=== PATIENT | female | born 1995 | race Caucasian/White ===

== ENCOUNTER → 2018-03-15 | Outpatient (CLI) | payer SELFPAY ==
--- NOTE | 2018-03-15 14:13 | RADIOLOGY REPORT (SQ) ---
EXAM DESCRIPTION: U/S OB 14+ TRNABD 1GES W/O DOP COMPLETED DATE/TIME: 03/15/2018 1:56 pm REASON FOR STUDY: ENCOUNTER FOR SUPERVISON OF OTHER NORMAL ,SECOND TRIMESTER Z34.[address] FOR SUPRVSN OF NORMAL , SECOND TRI COMPARISON: None. TECHNIQUE: Static and Dynamic grayscale imaging performed of gravid uterus using transabdominal appr oach. Additional selected color Doppler and spectral images recorded. All stored on PACS. LIMITATIONS: None. FINDINGS: FETUSES SEEN:1 EGA: 25 weeks Calculated using BPD,FL,HC,AC documented on images. No discrepancy with clinical dates . JUAN: 06/28/2018 EFW: 741+/- 110 grams PERCENTILE: 44th LVP: 4.2 cm PLACENTA: Anterior GRADE: I PRESENTATION: Cephalic. ANATOMY: HEART RATE: 140 beats per minute. FOUR CHAMBER HEART: Visualized. THREE VESSEL CORD: Yes. CORD INSERTION: Visualized. KIDNEYS AND BLADDER: Visualized. Appear normal. STOMACH: Visualized. Appears normal. SPINE: Normal as visualized. BRAIN AND LATERAL VENTRICLES: Lateral ventricles are normal. OTHER: Cerebellum and cisterna magna not seen because of positioning. MATERNAL ADNEXA: Maternal ovaries not visualized. CERVICAL LENGTH: 3.6 cm. Closed. OTHER: No other significant finding. IMPRESSION: LIVING INTRAUTERINE . ESTIMATED GESTATIONAL AGE 25 weeks. NO VISUALIZED ANOMALIES. Trimester of : Second trimester - 13 weeks 1 day to 27 weeks 6 days. TECHNICAL DOCUMENTATION: JOB ID: [id number] [employer]- All Rights Reserved Reading location - IP/workstation name: [email or web address]
== END ==
LOC: RAD 12:38
PROVIDERS: ATTEND Nurse Practitioner
DX: Z34.82 Encounter for supervision of other normal pregnancy, second trimester (principal)
CPT/HCPCS: 76805

== ENCOUNTER 2018-06-17 19:51 | Outpatient (CLI) | payer MEDICAID ==
[2018-06-17 20:47] LABS: APPEARANCE,URINE CLOUDY; BILIRUBIN,URINE NEGATIVE (NEGATIVE); COLOR,URINE YELLOW; GLUCOSE, URINE NEGATIVE (NEGATIVE); KETONES,URINE NEGATIVE (NEGATIVE); LEUKOCYTE ESTERASE,URINE TRACE (NEGATIVE); NITRITE,URINE NEGATIVE (NEGATIVE); PROTEIN,URINE NEGATIVE (NEGATIVE); URINE SPECIFIC GRAVITY 1.012; UROBILINOGEN,URINE NEGATIVE mg/dL (<2.0)
[2018-06-17 21:03] LABS: URINE AMPHETAMINES SCREEN NEGATIVE; URINE BARBITURATES SCREEN NEGATIVE; URINE BENZODIAZEPINES SCREEN NEGATIVE; URINE COCAINE SCREEN NEGATIVE; URINE MARIJUANA (THC) SCREEN NEGATIVE; URINE METHADONE SCREEN NEGATIVE; URINE PHENCYCLIDINE SCREEN NEGATIVE
== END 2018-06-17 21:11 | disposition home or self-care (01) ==
LOC: LC 19:51
PROVIDERS: ATTEND Obstetrics & Gynecology
PROC: 4A1HXCZ Monitoring of Products of Conception, Cardiac Rate, External Approach (ICD-10-PCS; principal; 2018-06-17)
DX: Z34.93 Encounter for supervision of normal pregnancy, unspecified, third trimester (principal)
CPT/HCPCS: 80307; 81005

== ENCOUNTER 2018-07-08 06:17 | Inpatient (IN) | payer MEDICAID ==
[2018-07-08] MEDS ORDERED: RINGERS SOLUTION,LACTATED 300 ML IV ONE (06:19)
[2018-07-08] MEDS ORDERED: PENICILLIN G POTASSIUM 5,000,000 UNIT in DEXTROSE 5%-WATER 100 ML IV ONE (06:19)
[2018-07-08] MEDS ORDERED: OXYTOCIN/NORMAL SALINE 20 UNIT/1,000 ML RTUINJ IV PRN ×2 (06:19→15:12)
[2018-07-08] MEDS ORDERED: MISOPROSTOL 0.2 MG TABLET ONE (06:50)
[2018-07-08] MEDS ORDERED: LIDOCAINE 1% INJ-PF (10 MG/ML) 30 ML SDV ONE (06:50)
[2018-07-08] MEDS ORDERED: OXYTOCIN/NORMAL SALINE 20 UNIT/1,000 ML RTUINJ ONE (06:50)
[2018-07-08] MEDS ORDERED: OXYTOCIN 10 UNIT/ML VIAL ONE (06:50)
[2018-07-08] MEDS ORDERED: PENICILLIN G-K 5 MILLION UNIT VIAL ONE ×2 (07:15→11:11)
[2018-07-08] MEDS: RINGERS SOLUTION,LACTATED 1,000 ML IV PRN ×2 (07:29→12:26)
[2018-07-08 08:04] LABS: ABSOLUTE EOSINOPHILS # (AUTO) 0.1 10^3/uL (0.0-0.6); ABSOLUTE LYMPHOCYTES (AUTO) 2.5 10^3/uL (0.5-4.7); ABSOLUTE MONOCYTES (AUTO) 1.2 10^3/uL (0.1-1.4); ABSOLUTE NEUT (AUTO) 9.8 10^3/uL (1.7-8.2); BASOPHILS % (AUTO) 0.3 % (0-2); EOSINOPHILS % (AUTO) 0.9 % (0-6); HEMATOCRIT 33.1 % (36.0-47.0); HEMOGLOBIN 10.8 g/dL (12.0-15.5); LYMPHOCYTES % (AUTO) 18.7 % (13-45); MEAN CORPUSCULAR HEMOGLOBIN 24.6 pg (27.0-33.4); MEAN CORPUSCULAR HGB CONC 32.6 g/dL (32.0-36.0); MEAN CORPUSCULAR VOLUME 75 fl (80-97); MONOCYTES % (AUTO) 8.4 % (3-13); PLATELET COUNT 315 10^3/uL (150-450); RED BLOOD COUNT 4.39 10^6/uL (3.72-5.28); RED CELL DISTRIBUTION WIDTH 16.9 % (11.5-14.0); SEGMENTED NEUTROPHILS % (AUTO) 71.7 % (42-78); TOTAL CELLS COUNTED % (AUTO) 100 %; WHITE BLOOD COUNT 13.6 10^3/uL (4.0-10.5)
[2018-07-08 08:12] LABS: APPEARANCE,URINE TURBID; BILIRUBIN,URINE NEGATIVE (NEGATIVE); COLOR,URINE YELLOW; GLUCOSE, URINE NEGATIVE (NEGATIVE); KETONES,URINE NEGATIVE (NEGATIVE); LEUKOCYTE ESTERASE,URINE LARGE (NEGATIVE); NITRITE,URINE NEGATIVE (NEGATIVE); PROTEIN,URINE NEGATIVE (NEGATIVE); URINE SPECIFIC GRAVITY 1.013; UROBILINOGEN,URINE NEGATIVE mg/dL (<2.0)
[2018-07-08 08:28] LABS: URINE AMPHETAMINES SCREEN NEGATIVE; URINE BARBITURATES SCREEN NEGATIVE; URINE BENZODIAZEPINES SCREEN NEGATIVE; URINE COCAINE SCREEN NEGATIVE; URINE MARIJUANA (THC) SCREEN NEGATIVE; URINE METHADONE SCREEN NEGATIVE; URINE PHENCYCLIDINE SCREEN NEGATIVE
[2018-07-08] MEDS ORDERED: PENICILLIN G-K 5 MILLION UNIT VIAL IV SCH (10:00)
--- NOTE | 2018-07-08 10:08 | Admission Physical ---
Datetime Report Generated by CPN: 07/08/2018 10:08 CURRENT ADMISSION Hx Assessment: The History has been Reviewed and is Current Chief Complaint: Uterine Contractions Indication for Induction: Post Dates Admit Impression : Postterm, Intrauterine ; No Active Labor; Intact Membranes; Induction of Labor Admit Plan: Admit to Unit ALLERGIES Medication Allergies: Yes Medication Allergies: butorphanol (07/08/2018) Latex: No Latex Allergies OBSTETRICAL HISTORY EDC: 06/29/2018 00:00 : 5 Para: 4 Term: 4 : 0 SAB: 0 IAB: 0 Ectopic: 0 Livin Cesareans: 0 VBACs: 0 Multiple Births: 0 Gestational Diabetes: No Rh Sensitization: No Incompetent Cervix: No ADRYAN: No Infertility: No ART Treatment: No Uterine Anomaly: No IUGR: No Hx Previous C/S: No Macrosomia: No Hx Loss/Stillborn: No PIH: No Hx : No Placenta Previa/Abruption: No Depression/PP Depression: Yes PTL/PROM: No Post Hemorrhage: Yes Current Procedures: Ultrasound; NST Obstetrical History Comments: @ 38wks male 8lbs 8oz G2 @ 39wks male 8lbs 8oz (pt states she "almost had to have a blood transfusion") @ 40wks male 7lbs 8oz @ 39wks male 8lbs 2oz G5-Current SEE RECORDS Alcohol: No Marijuana : No Cocaine: No Other Illicit Drugs: No Cigarettes: Current Everyday Smoker. 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 Heart Disease: No Hosp/Surgery: Yes Autoimmune Disorder: No Anesthetic Complications: No Kidney Disease: No Abnormal Pap Smear: No Neuro/Epilepsy: No Psychiatric Disorders: Yes Other Medical Diseases: No Hepatitis/Liver Disease: No Significant Family History: No Varicosities/Phlebitis: Yes Trauma/Violence : No Thyroid Dysfunction: No Medical History Comments: PE from Depo in 2017 currently on lovenox; Borderline personality disorder and schizophrenia-no meds; childbirth x 4; PPH INFECTIOUS HISTORY Gonorrhea: Yes Genital Herpes: No Chlamydia: Yes Tuberculosis: No Syphilis: No Hepatitis: No HIV/AIDS Exposure: No Rash or Viral Illness: No HPV: No PHYSICAL EXAM General: Normal HEENT: Deferred Neurologic: Normal Thyroid: Normal Heart: Normal Lungs: Normal Breast: Deferred Back: Normal Abdomen: Normal Genitourinary Exam: Normal Extremities: Normal DTRs: Normal Pelvic Type: Adequate Physical Exam Comments: Pelvis proven 8-8 On Lovenox, Hx PE on Depo Hx borderline personality disorder/Schizophrenia Obese Hx PPH + GBS Vital Signs: Reviewed FETUS A EGA: 41.2 Decelerations: None Presentation: Vertex Admit Comment: Admitted to LD for IOL for post dates, + GBS, 3, Cat 1, receiving meds for GBS, irreg uc's, will AROM after 4 hours of antibiotic PLANS FOR LABOR AND DELIVERY Labor and Delivery: None Pain Management: None Feeding Preference: Breast Benefit of Breast Feed Discussed: Yes Circumcision: No INFORMED CONSENT Assignment: Florian Brennan MD Signature: with User ID: Teresa : with User ID: Teresa
[2018-07-08] MEDS ORDERED: PENICILLIN G POTASSIUM 2,500,000 UNIT in DEXTROSE 5%-WATER 50 ML IV SCH (10:20)
--- NOTE | 2018-07-08 11:52 | L&D Progress Notes ---
PROGRESS NOTES Datetime Report Generated by CPN: 07/08/2018 11:52 PROGRESS NOTE Procedures: Artificial ROM; Sterile Vag Exam Plan: Continue Present Management; Induction Informed Consent Obtained: Induction of Labor Vital Signs : Reviewed; Within Normal Limits Comment: VE= 5/80/vtx/-1-2, arom, mod mec, irreg uc's, uc's stronger per pt. will monitor closely, anticipate VAGINAL EXAM Dilatation: 5 Effacement: 80 Station: -1 LAST VAGINAL EXAM-NURSING Dilitation: 5.0 Dilitation: 5.0 Dilitation: 2.0 Effacement: 80 Effacement: 70 Effacement: 20 Station: -2 Station: -3 Station: -2 Contractions: applied MEMBRANES Membranes: Ruptured Amniotic Fluid Color: Meconium, Light FETUS A Monitoring: External US FHR Category: Category I : 41.2 Presentation: Vertex SIGNATURE SIGNATURE: [id number] SIGNATURE: [id number] Assignment: Florian Brennan MD Signature: with User ID: Teresa : with User ID: Teresa
[2018-07-08] MEDS ORDERED: FENTANYL CITRATE INJ/PF 100 MCG/2 ML AMPUL IV ONE (12:39)
[2018-07-08] MEDS ORDERED: FENTANYL CITRATE INJ/PF 100 MCG/2 ML AMPUL ONE (12:41)
--- NOTE | 2018-07-08 13:30 | L&D Progress Notes ---
PROGRESS NOTES Datetime Report Generated by CPN: 07/08/2018 13:30 PROGRESS NOTE Comment: VE 6-7/80/vtx/-1, minimal relief from Fentanyl, breathing with uc's, family at BS VAGINAL EXAM Dilitation: 7.0 Effacement: 80 Station: 0 FETUS A Monitoring: External US FETUS C SIGNATURE: [id number];[id number] Assignment: Florian Brennan MD Signature: with User ID: Teresa : with User ID: Teresa
[2018-07-08] MEDS ORDERED: DIPH/PERTUSS(ACELL)/TETANUS VAC/PF 0.5 ML SYR (>=10YO) IM PRN (15:12)
[2018-07-08] MEDS ORDERED: PSEUDOEPHEDRINE HCL 30 MG TABLET PO PRN (15:12)
[2018-07-08] MEDS ORDERED: DIPHENHYDRAMINE HCL 25 MG CAPSULE PO PRN (15:12)
[2018-07-08] MEDS ORDERED: MISOPROSTOL 0.2 MG TABLET PR PRN (15:12)
[2018-07-08] MEDS ORDERED: DIBUCAINE 1% OINTMENT 28 GM TP PRN (15:12)
[2018-07-08] MEDS ORDERED: ACETAMINOPHEN WITH CODEINE #3 TABLET PO PRN ×2 (15:12)
[2018-07-08] MEDS ORDERED: NA PHOS,M-B/NA PHOS,DI-BA (ADULT) 133 ML ENEMA PR PRN (15:12)
[2018-07-08] MEDS ORDERED: PROMETHAZINE HCL 25 MG TABLET PO PRN (15:12)
[2018-07-08] MEDS ORDERED: MAGNESIUM HYDROXIDE SUSP 30 ML UDCUP PO PRN (15:12)
[2018-07-08] MEDS ORDERED: BENZOCAINE/MENTHOL AEROSOL SPRAY 56 ML TOP PRN (15:12)
[2018-07-08] MEDS ORDERED: PROMETHAZINE HCL 25 MG SUPP.RECT PR PRN (15:12)
[2018-07-08] MEDS ORDERED: ACETAMINOPHEN 650 MG SUPP.RECT PR PRN (15:12)
[2018-07-08] MEDS ORDERED: GLYCERIN/WITCH HAZEL LEAF 1 EACH MED..PAD TP PRN (15:12)
[2018-07-08] MEDS ORDERED: PROMETHAZINE HCL INJ 25 MG/1 ML VIAL IV PRN (15:12)
[2018-07-08] MEDS ORDERED: MEASLES,MUMPS&RUBELLA VACC/PF 0.5 ML VIAL SUBCUT PRN (15:12)
[2018-07-08] MEDS: DOCUSATE SODIUM 100 MG CAPSULE PO SCH (18:46)
[2018-07-08] MEDS: FERROUS SULFATE 325 MG TABLET PO SCH (18:46)
[2018-07-08] MEDS: FAMOTIDINE 20 MG TABLET PO SCH (21:21)
[2018-07-08] MEDS: ENOXAPARIN SODIUM INJ 40 MG/0.4 ML DISP.SYRIN SUBCUT SCH (21:21)
[2018-07-08] MEDS: IBUPROFEN 800 MG TABLET PO SCH (21:21)
[2018-07-09] MEDS: IBUPROFEN 800 MG TABLET PO SCH ×3 (05:49→21:31)
[2018-07-09 08:15] LABS: HEMATOCRIT 28.1 % (36.0-47.0); HEMOGLOBIN 9.4 g/dL (12.0-15.5); MEAN CORPUSCULAR HGB CONC 33.2 g/dL (32.0-36.0); MEAN CORPUSCULAR VOLUME 75 fl (80-97); PLATELET COUNT 292 10^3/uL (150-450); RED BLOOD COUNT 3.74 10^6/uL (3.72-5.28); RED CELL DISTRIBUTION WIDTH 16.8 % (11.5-14.0); WHITE BLOOD COUNT 14.7 10^3/uL (4.0-10.5)
--- NOTE | 2018-07-09 09:46 | PDOC PROGRESS REPORT ---
Subjective-OB Progress Note for:: 07/09/18 Subjective: Both hsb and patient snoring, unable to talk with them, nurse states she is doing well Physical Exam (OB) Vital Signs: Temp Pulse Resp BP Pulse Ox 98.0 F 83 22 H 126/54 H 100 07/09/18 08:00 07/09/18 08:00 07/09/18 08:00 07/09/18 08:00 07/09/18 08:00 Intake & Output 07/08/18 07/09/18 07/10/18 06:59 06:59 06:59 Intake Total 619 Balance 619 Weight 129.1 kg - PIH/Pre-Eclampsia Clonus: Negative Headache: Absent Epigastric Pain: No Visual Changes: No - Lochia Lochia Amount: Scant < 10 ml Lochia Color: Rubra/Red - Abdomen Description: Tender, Soft Hernia Present: No Fundal Description: Firm, Midline Fundal Height: u/u - u/2 Objective-Diagnostic Laboratory: 07/09/18 07:53 07/09/18 07:53 WBC 14.7 H RBC 3.74 Hgb 9.4 L Hct 28.1 L MCV 75 L MCH 25.0 L MCHC 33.2 RDW 16.8 H Plt Count 292 Assessment and Plan(PN) - Assessment and Plan (1) History of hemorrhage Is this a current diagnosis for this admission?: Yes (2) Schizophrenia, borderline Is this a current diagnosis for this admission?: Yes (3) Borderline personality disorder in adult Is this a current diagnosis for this admission?: Yes (4) History of pulmonary embolism Is this a current diagnosis for this admission?: Yes (5) GBS (group B Streptococcus carrier), +RV culture, currently Is this a current diagnosis for this admission?: Yes (6) Morbid obesity with BMI of 45.0-49.9, adult Is this a current diagnosis for this admission?: Yes (7) Macrosomic baby Is this a current diagnosis for this admission?: Yes (8) Normal vaginal delivery Is this a current diagnosis for this admission?: Yes - Time Spent with Patient Time with patient: Less than 15 minutes - Disposition Anticipated Discharge: Home Within: within 48 hours
[2018-07-09] MEDS: SENNOSIDES/DOCUSATE 8.6-50 MG 1 EACH TABLET PO SCH (11:01)
[2018-07-09] MEDS: FAMOTIDINE 20 MG TABLET PO SCH ×2 (11:02→21:31)
[2018-07-09] MEDS: FERROUS SULFATE 325 MG TABLET PO SCH ×2 (11:02→18:35)
[2018-07-09] MEDS: DOCUSATE SODIUM 100 MG CAPSULE PO SCH ×2 (11:02→18:35)
[2018-07-09] MEDS: PRENATAL VITAMIN W DHA CAPSULE PO SCH (11:02)
[2018-07-09 21:01] VITALS: BP 121/60
[2018-07-09] MEDS: ENOXAPARIN SODIUM INJ 40 MG/0.4 ML DISP.SYRIN SUBCUT SCH (21:31)
[2018-07-10] MEDS: IBUPROFEN 800 MG TABLET PO SCH (05:04)
[2018-07-10] MEDS: FERROUS SULFATE 325 MG TABLET PO SCH (09:16)
[2018-07-10] MEDS: DOCUSATE SODIUM 100 MG CAPSULE PO SCH (09:16)
[2018-07-10] MEDS: PRENATAL VITAMIN W DHA CAPSULE PO SCH (09:16)
[2018-07-10] MEDS: FAMOTIDINE 20 MG TABLET PO SCH (09:16)
[2018-07-10] MEDS: SENNOSIDES/DOCUSATE 8.6-50 MG 1 EACH TABLET PO SCH (09:16)
--- NOTE | 2018-07-10 10:39 | PDOC PROGRESS REPORT ---
Subjective-OB Progress Note for:: 07/10/18 Subjective: Doing well, no c/o, unsure if baby is going Physical Exam (OB) Vital Signs: Temp Pulse Resp BP Pulse Ox 98.8 F 76 18 121/60 98 07/09/18 20:00 07/09/18 20:00 07/09/18 20:00 07/09/18 20:00 07/09/18 20:00 Intake & Output 07/09/18 07/10/18 07/11/18 06:59 06:59 06:59 Intake Total 619 Balance 619 - PIH/Pre-Eclampsia Clonus: Negative Headache: Absent Epigastric Pain: No Visual Changes: No - Lochia Lochia Amount: Scant < 10 ml Lochia Color: Rubra/Red - Abdomen Description: Tender, Soft, Round Hernia Present: No Fundal Description: Firm, Midline Fundal Height: u/u - u/2 Objective-Diagnostic Laboratory: 07/09/18 07:53 Assessment and Plan(PN) - Assessment and Plan (1) History of hemorrhage Is this a current diagnosis for this admission?: Yes (2) Schizophrenia, borderline Is this a current diagnosis for this admission?: Yes (3) Borderline personality disorder in adult Is this a current diagnosis for this admission?: Yes (4) History of pulmonary embolism Is this a current diagnosis for this admission?: Yes (5) GBS (group B Streptococcus carrier), +RV culture, currently Is this a current diagnosis for this admission?: Yes (6) Morbid obesity with BMI of 45.0-49.9, adult Is this a current diagnosis for this admission?: Yes (7) Macrosomic baby Is this a current diagnosis for this admission?: Yes (8) Normal vaginal delivery Is this a current diagnosis for this admission?: Yes - Time Spent with Patient Time with patient: Less than 15 minutes Medications reviewed and adjusted accordingly: Yes - Disposition Anticipated Discharge: Home Within: within 24 hours
--- NOTE | 2018-07-10 10:44 | PDOC DISCHARGE SUMMARY ---
Final Diagnosis Discharge Date: 07/10/18 - Final Diagnosis (1) History of hemorrhage Is this a current diagnosis for this admission?: Yes (2) Schizophrenia, borderline Is this a current diagnosis for this admission?: Yes (3) Borderline personality disorder in adult Is this a current diagnosis for this admission?: Yes (4) History of pulmonary embolism Is this a current diagnosis for this admission?: Yes (5) GBS (group B Streptococcus carrier), +RV culture, currently Is this a current diagnosis for this admission?: Yes (6) Morbid obesity with BMI of 45.0-49.9, adult Is this a current diagnosis for this admission?: Yes (7) Macrosomic baby Is this a current diagnosis for this admission?: Yes (8) Normal vaginal delivery Is this a current diagnosis for this admission?: Yes Discharge Data - Discharge Medication Home Medications: Enoxaparin Sodium [Lovenox Inj 40 mg/0.4 ml Disp.syrin] 40 mg SUBCUT DAILY 06/17/18 Vits96/Iron Fum/Folic [ Tablet] 1 each PO DAILY 06/17/18 Gestational Age: 41.2 Reason(s) for Admission: Induction of Labor, Group B Strep Positive Procedures: NST, Ultrasound Intrapartum Procedure(s): Spontaneous Vaginal Delivery Intrapartum Procedure Note: meconium, macrosomic infant, pp atony - [place] Data Baby 1 Male at 1 minute: 9 at 5 minutes: 9 Weight: 4.791 kg Home with Mother: No Complications: Yes - respiratory - Diagnosis Test Laboratory: Temp Pulse Resp BP Pulse Ox 98.8 F 76 18 121/60 98 07/09/18 20:00 07/09/18 20:00 07/09/18 20:00 07/09/18 20:00 07/09/18 20:00 07/08/18 07/08/18 07/09/18 07:13 07:40 07:53 RBC 4.39 3.74 Hgb 10.8 L 9.4 L Hct 33.1 L 28.1 L Urine Opiates Screen NEGATIVE - Discharge information/Instructions Discharge Activity: Activity As Tolerated, No Lifting Over 10 Pounds, No Lifting/Push/Pulling, Pelvic Rest Discharge Diet: As Tolerated, Regular Disposition: HOME, SELF-CARE Follow up with: [facility] in: 2, Weeks
--- NOTE | 2018-07-21 11:02 | Delivery Summary ---
Del Sum A-C Datetime Report Generated by CPN: 07/21/2018 11:01 DELIVERY PERSONNEL DELIVERY PERSONNEL: [id number] Delivery Doctor:: Chloe Williamson CNM Labor and Delivery Nurse:: Cassandra Schulte RNlandscape nurseryman Nurse:: Abimael Carreno RN Psychology Fellow:: WILLIAM Quinones Nursery Nurse:: Ailyn Loredo RN Nursery Nurse:: Cristine Easton RN Dental Coordinator/PLANNING INTERN: Maria Del Carmen [address] Additional Personnel: : Brayan Chandler RN MATERNAL INFORMATION Delivery Anesthesia: None Medications After Delivery: Pitocin Bolus-Please Comment; Cytotec 1000mcg Per Rectum/Vagina Meds After Delivery Comment: Pitocin 20 units Maternal Complications: None Provider Comments: viable male from OA to [place]CET[place] over intact perieneum, placed on mothers abd, thick meconium. Cord clamped and cut by father after 2 minutes. Spont delivery of grossly nl large, meconium stained placenta, uterine atony, massage, Pitocin, 1000mcg of Cytotec, resolved, cervix intact No lacerations, family at , [facility] Baby and mom in recovery in stable condition (Annotations: Data stored by CPN on behalf of user) LABOR SUMMARY EDC: 06/29/2018 00:00 No. Babies in Womb: 1 Attempted: No Labor Anesthesia: None LABOR INFORMATION Reason for Induction: Post Dates Onset of Labor: 07/08/2018 08:57 Complete Dilatation: 07/08/2018 14:29 Oxytocin: Induction Group B Beta Strep: Positive Antibiotics # of Doses: 2 Antibiotics Time of Last Dose: 11:11 Name of Antibiotic Given: PCN Steroids Given: None Reason Steroids Not Administered: Not Applicable MEMBRANES Membranes Rupture Method: Artificial Rupture of Membranes: 07/08/2018 11:46 Length of Rupture (hr): 2.88 Amniotic Fluid Color: Moderate Meconium Amniotic Fluid Amount: Small STAGES OF LABOR Stage 1 hr: 5 Stage 1 min: 32 Stage 2 hr: 0 Stage 2 min: 10 Stage 3 hr: 312 Stage 3 min: 7 Total Time in Labor hr: 317 Total Time in Labor min: 49 VAGINAL DELIVERY Episiotomy: None Laceration #1: None Laceration Extension #1: N/A Laceration Repair: Not Applicable Sponge Count Correct: Yes Sharps Count Correct: Yes CSECTION DELIVERY Primary Indication: N/A Secondary Indication: N/A CSection Incidence: N/A Labor: N/A Elective: N/A CSection Incision: N/A BABY A INFORMATION Infant Delivery Date/Time: 07/08/2018 14:39 Method of Delivery: Vaginal Born in Route : No : N/A Forceps: N/A Vacuum Extraction: N/A Shoulder Dystocia : No PRESENTATION/POSITION BABY A Presentation: Cephalic Cephalic Presentation: Vertex Vertex Position: Left Occipital Anterior Breech Presentation: N/A PLACENTA INFORMATION BABY A Placenta Delivery Time : 07/21/2018 14:46 Placenta Method of Delivery: Spontaneous Placenta Method of Delivery: Spontaneous Placenta Status: Delivered SCORES BABY A Heart Rate 1 min: >100 bpm Resp Effort 1 min: Good Cry Reflex Irritability 1 min: Cough or Sneeze or Pulls Away Muscle Tone 1 min: Active Motion Color 1 min: Body [place], Extremities Blue Resuscitation Effort 1 min: Tactile Stimulation SCORE 1 MIN: 9 Heart Rate 5 min: >100 bpm Resp Effort 5 min: Good Cry Reflex Irritability 5 min: Cough or Sneeze or Pulls Away Muscle Tone 5 min: Active Motion Color 5 min: Body [place], Extremities Blue Resuscitation Effort 5 min: Tactile Stimulation SCORE 5 MIN: 9 INFORMATION BABY A Gestational Age at Delivery: 41.2 Gestational Status: Late Term- 41- 41.6 Weeks Infant Outcome : Liveborn Condition : Stable Infant Sex: Male IDENTIFICATION BABY A Infant Verification Date/Time: 07/08/2018 15:22 ID Band Number: [id number] Mother's Name Verified: Yes Infant RN Verifying Infant: , RN and D.[place], RN WEIGHT/LENGTH BABY A Birthweight (gm): 4790 Infant Weight (lb): 10 Weight (oz): 9 Infant Length (in): 21.50 Infant Length (cm): 54.61 CORD INFORMATION BABY A No. Cord Vessels: 3 Nuchal Cord : N/A Cord Blood Taken: Yes-For Storage (Mom's Blood type +) Suction: Mouth ASSESSMENT BABY A Skin to Skin: Yes
== END 2018-07-10 13:11 | disposition home or self-care (01) | DRG 807 ==
LOC: LR 06:17 → 2S 17:30
PROVIDERS: ADMIT Obstetrics & Gynecology Gynecology; ATTEND Obstetrics & Gynecology Gynecology
PROC: 10E0XZZ Delivery of Products of Conception, External Approach (ICD-10-PCS; principal; 2018-07-08)
PROC: 10907ZC Drainage of Amniotic Fluid, Therapeutic from Products of Conception, Via Natural or Artificial Opening (ICD-10-PCS; 2018-07-08)
PROC: 4A1HXCZ Monitoring of Products of Conception, Cardiac Rate, External Approach (ICD-10-PCS; 2018-07-08)
DX: O99.824 Streptococcus B carrier state complicating childbirth (principal); Z37.0 Single live birth; O99.214 Obesity complicating childbirth; E66.01 Morbid (severe) obesity due to excess calories; O36.63X0 Maternal care for excessive fetal growth, third trimester, not applicable or unspecified; O48.0 Post-term pregnancy; O99.334 Smoking (tobacco) complicating childbirth; F17.210 Nicotine dependence, cigarettes, uncomplicated; O75.89 Other specified complications of labor and delivery; Z86.711 Personal history of pulmonary embolism; Z28.21 Immunization not carried out because of patient refusal; Z88.6 Allergy status to analgesic agent; Z3A.41 41 weeks gestation of pregnancy
CPT/HCPCS: 36415; 80307; 81005; 85025; 85027; 86592; 86850; 86900; 86901; J1650; J2540; J2590; J3010; J3490

== ENCOUNTER 2018-08-18 11:05 | Emergency (ER) | payer MEDICAID ==
[2018-08-18] MEDS ORDERED: IBUPROFEN 800 MG TABLET PO ONE (12:15)
--- NOTE | 2018-08-18 12:17 | ER Document Report ---
HPI - HPI Patient complains to provider of: FALL Time Seen by Provider: 08/18/18 12:11 Onset: This morning Onset/Duration: Sudden Quality of pain: Achy Severity: Mild Pain Level: 2 Context: Patient presents emergency department with complaints that she tripped over a baby gate this morning falling onto her right shoulder hitting her head. She denies change in LOC. She reports her shoulder hurts now and she has pain in her right wrist and right hand. She reports she did not hit her hand or wrist but it is hurting now. No other complaints such as fever vomiting diarrhea. Associated Symptoms: None Exacerbated by: Denies, Movement Relieved by: Denies Similar symptoms previously: No Recently seen / treated by doctor: No - REPRODUCTIVE LMP: 08/15/18 Reproductive: DENIES: : Past Medical History - General Information source: Patient Last Menstrual Period: Current - Social History Smoking Status: Unknown if Ever Smoked Frequency of alcohol use: None Drug Abuse: None Lives with: Family Family History: Reviewed & Not Pertinent - Past Medical History Cardiac Medical History: Reports: Hx Hypertension Psychiatric Medical History: Reports: Hx Anxiety, Hx Bipolar Disorder Surgical Hx: Negative - Immunizations Immunizations up to date: Yes Hx Diphtheria, Pertussis, Tetanus Vaccination: Yes Vertical Provider Document - CONSTITUTIONAL Agree With Documented VS: Yes Exam Limitations: No Limitations General Appearance: WD/WN, No Apparent Distress - INFECTION CONTROL TRAVEL OUTSIDE OF THE [place] IN LAST 30 DAYS: No - HEENT HEENT: Atraumatic, Normocephalic. negative: Conjuctival Injection - NECK Neck: Normal Inspection, Supple. negative: Lymphadenopathy-Left, Lymphadenopathy-Right - RESPIRATORY Respiratory: No Respiratory Distress - CARDIOVASCULAR Cardiovascular: Regular Rate - MUSCULOSKELETAL/EXTREMETIES Musculoskeletal/Extremeties: MAEW, FROM, Tender - Reports right shoulder tender right wrist and right dorsal hand. No obvious deformity no swelling no erythema no warmthm, full range of motion no weakness excellent radial pulse good cap refill - NEURO Level of Consciousness: Awake, Alert, Appropriate Motor/Sensory: No Motor Deficit - DERM Integumentary: Warm, Dry Adult Front & Back Diagram: 1 - c/o pain 2 - c/o pain Course - Re-evaluation Re-evalutation: 08/18/18 13:55 She was instructed on negative x-rays. We will place a thumb spica splint because patient is very tender in the scaphoid area. Patient was instructed that this is to protect patient and it is important for her to follow-up with an orthopedic for further evaluation. She verbalized understanding to all inst ructions. Dictation of this chart was performed using voice recognition software; therefore, there may be some unintended grammatical errors. - Vital Signs Vital signs: Temp Pulse Resp BP Pulse Ox 98.4 F 94 18 138/72 H 100 08/18/18 11:24 08/18/18 11:24 08/18/18 11:24 08/18/18 11:24 08/18/18 11:24 - Diagnostic Test Radiology reviewed: Image reviewed, Reports reviewed - Exam Information Ac cession Number: [id number] Modality: CR Body Part: RWRIST Description: WRIST RIGHT 3 VIEWS Performed Date: 08/18/2018 12:48:24 Reason for Study: ITS.REASON Final Report EXAM DESCRIPTION: WRIST RIGHT 3 VIEWS COMPLETED DATE/TIME: 08/18/2018 12:40 pm REASON FOR STUDY: FALL WRIST, HAND, SHOULDER PAIN COMPARISON: None. NUMBER OF VIEWS: Three views. TECHNIQUE: AP, lateral, and oblique radiographic images acquired of the right wrist. LIMITATIONS: None. FINDINGS: MINERALIZATION: Normal. BONES: No acute fracture or dislocation. No worrisome bone lesions. Normal alignment. SOFT TISSUES: No soft tissue swelling. No foreign body. OTHER: No other significant finding. IMPRESSION: NEGATIVE STUDY OF THE RIGHT WRIST. NO RADIOGRAPHIC EVIDENCE OF ACUTE INJURY. TECHNICAL DOCUMENTATION: JOB ID: [id number] [email or web address]- All Rights Reserved Reading location - IP/workstation name: [email or web address] Dictated by: KRISTIN BLEVINS MD 1240 CC: JAVIER ROMERO NP > 08/18/18 1258 Principal Compensation And Benefits Advisor Name: KRISTIN BLEVINS Provider ID: [id number] Modality: CR Body Part: RSHOULDER Description: SHOULDER RIGHT 2 OR MORE VIEWS Performed Date: 08/18/2018 12:41:14 Reason for Study: ITS.REASON Final Report EXAM DESCRIPTION: SHOULDER RIGHT 2 OR MORE VIEWS COMPLETED DATE/TIME: 08/18/2018 12:40 pm REASON FOR STUDY: FALL WRIST, HAND, SHOULDER PAIN COMP ARISON: None. NUMBER OF VIEWS: Three views. TECHNIQUE: Internal rotation, external rotation, and Y view images acquired of the right shoulder. LIMITATIONS: None. FINDINGS: MINERALIZATION: Normal. BONES: No acute fracture or dislocation. No worrisome bone lesions. JOINTS: No dislocation. VISUALIZED LUNGS AND RIBS: No pneumothorax. No rib fracture. SOFT TISSUES: No radiopaque foreign body. OTHER: No other significant finding. IMPRESSION: NEGATIVE STUDY OF THE RIGHT SHOULDER. NO RADIOGRAPHIC EVIDENCE OF ACUTE INJURY. TECHNICAL DOCUMENTATION: JOB ID: [id number] [email or web address]- All Rights Reserved Reading location - IP/workstation name: [email or web address] Dictated by: KRISTIN BLEVINS MD 1240 CC: JAVIER ROMREO NP > 08/18/18 1259 [employer] Compensation And Benefits Advisor Name: KRISTIN BLEVINS Provider ID: ADALA Modality: CR Body Part: RSHOULDER Description: SHOULDER RIGHT 2 OR MORE VIEWS Performed Date: 08/18/2018 12:41:14 Reason for Study: ITS.REASON Final Report EXAM DESCRIPTION: SHOULDER RIGHT 2 OR MORE VIEWS COMPLETED DATE/TIME: 08/18/2018 12:40 pm REASON FOR STUDY: FALL WRIST, HAND, SHOULDER PAIN COMPARISON: None. NUMBER OF VIEWS: Three views. TECHNIQUE: Internal rotation, external rotation, and Y view images acquired of the right shoulder. LIMITATIONS: None. FINDINGS: MINERALIZATION: Normal. BONES: No acute fracture or dislocation. No worrisome bone lesions. JOINTS: No dislocation. VISUALIZED LUNGS AND RIBS: No pneumothorax. No rib fracture. SOFT TISSUES: No radiopaque foreign body. OTHER: No other significant finding. IMPRESSION: NEGATIVE STUDY OF THE RIGHT SHOULDER. NO RADIOGRAPHIC EVIDENCE OF ACUTE INJURY. TECHNICAL DOCUMENTATION: JOB ID: [id number] [email or web address]- All Rights Reserved Reading location - IP/workstation name: [email or web address] Dictated by: KRISTIN BLEVINS MD 1240 CC: JAVIER ROMERO NP > 08/18/18 2849 Principal Compensation And Benefits Advisor Name: KRISTIN BLEVINS Provider ID: ADALA Procedures - Immobilization Right Hand Pre-Proc Neuro Vasc Exam: Normal Immobilizer type: Thumb spica Performed by: PCT Post-Proc Neuro Vasc Exam: Unchanged from pre-exam Alignment checked and good: Yes Discharge - Discharge Clinical Impression: Right shoulder, right wrist pain Fall Qualifiers: Encounter type: initial encounter Qualified Code(s): W19.XXXA - Unspecified fall, initial encounter Disposition: HOME, SELF-CARE Instructions: Use of Rkya-Nwy-Omuyurz Ibuprofen ([facility]), Ice & Elevation ([facility]) Additional Instructions: *You have been evaluated after a fall for right shoulder and right hand wrist pain *Your x-rays were negative for an acute fracture but since you have pain around your scaphoid area on your hand a splint has been placed to protect the area *Maintain the splint *Rest/Ice/Elevate shoulder and hand *Follow up with orthopedics within 1 week for evaluation *Take ibuprofen as indicated for pain *Return to ED for worsening condition, changes, needs Forms: Return to Work Referrals: SHIRLENE CASEY MD [ACTIVE STAFF] - Follow up in 3-5 days [facility] [Provider Group] - Follow up in 3-5 days
--- NOTE | 2018-08-18 12:58 | RADIOLOGY REPORT (SQ) ---
EXAM DESCRIPTION: WRIST RIGHT 3 VIEWS COMPLETED DATE/TIME: 08/18/2018 12:40 pm REASON FOR STUDY: FALL WRIST, HAND, SHOULDER PAIN COMPARISON: None. NUMBER OF VIEWS: Three views. TECHNIQUE: AP, lateral, and oblique radiographic images acquired of the right wrist. LIMITATIONS: None. FINDINGS: MINERALIZATION: Normal. BONES: No acute fracture or dislocation. No worrisome bone lesions. Normal alignment. SOFT TISSUES: No soft tissue swelling. No foreign body. OTHER: No other significant finding. IMPRESSION: NEGATIVE STUDY OF THE RIGHT WRIST. NO RADIOGRAPHIC EVIDENCE OF ACUTE INJURY. TECHNICAL DOCUMENTATION: JOB ID: [id number] [employer]- All Rights Reserved Reading location - IP/workstation name: [email or web address]
--- NOTE | 2018-08-18 12:59 | RADIOLOGY REPORT (SQ) ---
EXAM DESCRIPTION: SHOULDER RIGHT 2 OR MORE VIEWS COMPLETED DATE/TIME: 08/18/2018 12:40 pm REASON FOR STUDY: FALL WRIST, HAND, SHOULDER PAIN COMPARISON: None. NUMBER OF VIEWS: Three views. TECHNIQUE: Internal rotation, external rotation, and Y view images acquired of the right shoulder. LIMITATIONS: None. FINDINGS: MINERALIZATION: Normal. BONES: No acute fracture or dislocation. No worrisome bone lesions. JOINTS: No dislocation. VISUALIZED LUNGS AND RIBS: No pneumothorax. No rib fracture. SOFT TISSUES: No radiopaque foreign body. OTHER: No other significant finding. IMPRESSION: NEGATIVE STUDY OF THE RIGHT SHOULDER. NO RADIOGRAPHIC EVIDENCE OF ACUTE INJURY. TECHNICAL DOCUMENTATION: JOB ID: [id number] [email or web address] All Rights Reserved Reading location - IP/workstation name: [email or web address]
[2018-08-18 13:32] VITALS: BP 117/62
== END 2018-08-18 13:56 | disposition home or self-care (01) ==
LOC: ER 11:05
DX: S09.90XA Unspecified injury of head, initial encounter (principal); S49.91XA Unspecified injury of right shoulder and upper arm, initial encounter; M25.531 Pain in right wrist; M79.641 Pain in right hand; W01.0XXA Fall on same level from slipping, tripping and stumbling without subsequent striking against object, initial encounter; Y92.009 Unspecified place in unspecified non-institutional (private) residence as the place of occurrence of the external cause; I10 Essential (primary) hypertension
CPT/HCPCS: 99283; 73030; 73110; 29125; J3490